=== PATIENT | male | born 1965 | race Caucasian/White ===

== ENCOUNTER 2021-06-05 10:18 | Emergency (ER) | payer OTHER ==
[~2021-06-05] VITALS: Ht 180.3 cm; Wt 89.0 kg
--- NOTE | 2021-06-05 11:05 | NUR ---
Pt reports 1 episode of bloody urine on Monday with a blood clot that came out. He c/o bladder pain but denies flank pain currently. He denies painful urination but he states he has trouble starting a stream. MD Fraire at bedside for zoya.
--- NOTE | 2021-06-05 11:34 | NUR ---
110ML post void residual. aware.
[2021-06-05 11:46] LABS: MICROSCOPIC NOT IND
[2021-06-05 11:52] LABS: BASOPHILS % (AUTO) 1 % (0-1); EOSINOPHILS % (AUTO) 2 % (1-7); LYMPHOCYTES % (AUTO) 36 % (22-44); MEAN CORPUSCULAR HEMOGLOBIN 30.2 pg (27.5-34.5); MEAN CORPUSCULAR HGB CONC 34.9 g/dL (33.2-36.2); MEAN PLATELET VOLUME 7.9 fL (7.4-10.4); MONOCYTES % (AUTO) 10 % (2-9); NEUTROPHILS % (AUTO) 51 % (42-75); PLATELET COUNT 242 x10^3/uL (130-400); RED BLOOD COUNT 5.01 x10^6/uL (4.38-5.82); RED CELL DISTRIBUTION WIDTH 13.6 % (9.4-14.8)
[2021-06-05 12:06] LABS: ALBUMIN 3.6 g/dL (3.4-5.0); ANION GAP 5 mmol/L (5-15); CALCIUM 8.8 mg/dL (8.5-10.1); CHLORIDE 111 mmol/L (98-107)
[2021-06-05 12:07] LABS: CREATININE 0.82 mg/dL (0.7-1.3)
[2021-06-05] MEDS ORDERED: SODIUM CHLORIDE FLUSH 10ML SYR IVF ONE (12:30)
--- NOTE | 2021-06-05 13:16 | NUR ---
TASK RN: PT AWAITING CT.
--- NOTE | 2021-06-05 13:33 | NUR ---
Called to inquire about imaging. Pt to be next in CT.
[2021-06-05] MEDS ORDERED: OMNIPAQUE 350 MG/ML, 100ML BOTTLE ONE (13:49)
[2021-06-05 14:56] VITALS: BP 140/90
== END 2021-06-05 14:58 | disposition home or self-care (01) ==
LOC: ED 11:50
DX: R10.30 Lower abdominal pain, unspecified (principal); R31.9 Hematuria, unspecified
CPT/HCPCS: 36415; 74177; 80048; 81003; 82040; 85025; 99285; Q9967

== ENCOUNTER 2021-06-11 12:07 | Emergency (ER) | payer MEDICAID, OTHER ==
[~2021-06-11] VITALS: Ht 180.3 cm; Wt 89.8 kg
--- NOTE | 2021-06-11 12:48 | NUR ---
PT BACK FOR RT FLANK AND PELVIC PAIN. PT PERSONAL FRIEND WHO IS A RADIOLOGIST ASSESSED PT'S IMAGES AND CALLED ORIGINAL RADIOLOGIST, WHO HAS MADE AN ADDENDUM TO THE CT READ. EDMD IN TO ASSESS PT. PT REPORTS INCREASED PAIN LAST NIGHT, NOW "PRESSURE" STILL PRESENT IN PELVIC REGION, BUT DIMINISHED.
--- NOTE | 2021-06-11 13:42 | NUR ---
PT TAKEN TO CT AT THIS TIME. UA COLLECTED AND SENT TO LAB. NAD NOTED IN PT AT THIS TIME. RESPIRATIONS EVEN AND UNLABORED ON RA.
[2021-06-11 13:59] LABS: MICROSCOPIC NOT IND
[2021-06-11] MEDS ORDERED: OMNIPAQUE 350 MG/ML, 150 ML BOTTLE ONE (14:21)
--- NOTE | 2021-06-11 14:21 | NUR ---
PT STILL IN CT.
--- NOTE | 2021-06-11 15:01 | NUR ---
PT RETURNED FROM IMAGING. NAD NOTED AT THIS TIME. RESPIRATIONS EVEN AND UNLABORED ON RA. NAD NOTED AT THIS TIME. REPORT TO BERNARDA GREENE.
--- NOTE | 2021-06-11 15:07 | NUR ---
REPORT FROM BEKA MENCHACA
[2021-06-11 15:50] VITALS: BP 146/97
== END 2021-06-11 16:00 | disposition home or self-care (01) ==
LOC: ED 12:40
DX: R10.30 Lower abdominal pain, unspecified (principal); R31.9 Hematuria, unspecified; Z88.6 Allergy status to analgesic agent; Z88.5 Allergy status to narcotic agent
CPT/HCPCS: 74178; 76000; 81003; 99285; Q9967